=== PATIENT | male | born 2005 | race Hispanic/Latino ===

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

== ENCOUNTER 2025-01-11 19:48 | Emergency (ER) | payer OTHER ==
[~2025-01-11] VITALS: Ht 180.3 cm; Wt 93.0 kg
[~2025-01-11 19:48] MED LIST: METH-662 PO; NAPR-1505 PO
[2025-01-11] MEDS: 0.9%NACL 1000ML 1,000 ML IV ONE (20:08)
[2025-01-11] MEDS: FAMOTIDINE 20MG TAB PO ONE (20:08)
--- NOTE | 2025-01-11 20:20 | ERN ---
ED Note History of Present Illness Stated Complaint: ALLERGIC REACTION TO BEES, EPI PEN USED Chief Complaint: Allergic Reaction Time Seen by MD: 19:50 Time Seen by Midlevel: 19:50 Dictation: The patient is a 19-year-old male with no significant past medical history who presents to the emergency department with complaints of allergic reaction after being stung by two bees around 11:00 a.m.. Patient reports that he was done in his left lower quadrant and his left lower leg. Reports he removed his stinger. Patient reports that he developed hives and facial swelling and took his sister Leonardo around 11:00 a.m.. Patient reports that swelling has significantly decreased, hives were gone. Allergies: Coded Allergies: No Known Drug Allergies (Unverified Allergy, Unknown, 08/18/24) bee venom protein (honey bee) (Unverified Allergy, Unknown, 01/11/25) Home Meds Active Scripts Naproxen (Naproxen) 375 Mg Tablet.dr, 375 MG PO BID for 7 Days, #14 TAB Prov:MARTHA CHOUDHURY MD 08/18/24 Methocarbamol (Robaxin) 750 Mg Tab, 1 TAB PO BID for 5 Days, #10 TAB 0 Refills Prov:MARTHA CHOUDHURY MD 08/18/24 Past Medical History Past Medical History: No Pertinent History Surgical History: None RN Note Reviewed/Agreed w/PFSH: Yes Review of System Dictation Constitutional: Negative for fever,chills, and weight loss Eyes: Negative for injury, pain,redness, and discharge ENT: Negative for injury,pain or positive for facial swelling Cardiovascular: Negative for chest pain, palpitations, and edema Respiratory: Negative for shortness of breath, cough, and wheezing, Abdomen/GI: Negative for abdominal pain, nausea, vomiting, diarrhea, and constipation Back: Negative for injury and pain : Negative for injury, bleeding and discharge MS/Extremity: Negative for injury and deformity Skin: Negative for rash, and discoloration positive for bee sting Neuro: Negative for headache, weakness, numbness, tingling, and seizure Psych: Negative for suicide ideation, homicidal ideation, and hallucinations Initial Vital Sign VS Vital Signs Date Time Temp Pulse Resp B/P (MAP) Pulse Ox O2 Delivery O2 Flow Rate FiO2 01/11/25 19:50 98.2 62 18 139/71 100 Room Air Physical Exam Dictation Vital Signs reviewed General Appearance: Alert, oriented x 3, no acute distress, well developed, nourished. Head and Face: non-traumatic. Eyes: PERRL, pink conjunctivas, anterior chamber with arcus senilis. Mild bilateral eyelid swelling Ears: Pinnas intact and no signs of trauma or erythema ear canals clear and no discharge TM no erythema Nose: No discharge, no bleeding. Oropharynx: Mouth normal, tongue pink. Tongue normal in size pharynx clear,no erythema, tonsils no exudates, no abscesses noted, mucous membrane moist Neck: Supple, non-tender, no thyromegaly, no masses, no JVD, no bruits Breast:Deferred Chest:No tenderness, no crepitus, no paradoxical movement, no retractions Lungs:Clear, well-ventilated, symmetric, no rales, no wheezing, no rhonchi, no stridor, good breath sounds bilaterally Heart: Regular rate, regular rhythm, no murmur, no gallops Vascular: no peripheral edema, Abdomen: Soft, positive bowel sounds, nondistended, no guarding, nontender, no rebound, no masses no hepatomegaly, no splenomegaly, no Richards's sign, no hernias. Rectal: Deferred Genital: Deferred Neurological: Normal speech, motor function intact, sensory function intact Musculoskeletal: Neck nontender, full range of motion, back nontender, full range of motion, Extremities: nontender, full range of motion Skin: Color pink, dry, no turgor, no rash, no lacerations, no abrasions, no contusions. Erythema to left lower quadrant Lymphatic: Deferred Results (Laboratory/Radiology) Labs Reviewed?: Yes ED Course ED Course Orders Procedure Category Date Status Time Methylprednisolone PHA 01/11/25 Complete Succ 125mg (Solu-Medr 20:00 Famotidine 20mg Tab PHA 01/11/25 Complete (Pepcid 20mg Tab) 20:00 0.9%Nacl 1000ml (Ns PHA 01/11/25 Complete 1000ml) 20:00 Diphenhydramine Hcl PHA 01/11/25 Complete (Benadryl Inj) 20:00 Current Medications Medications (Trade) Dose Ordered Sig/Florentino Route PRN Reason Start Time Stop Time Status Last Admin Dose Admin Diphenhydramine HCl (BENAdryl INJ) 50 mg ONCE ONCE IV 01/11/25 20:00 01/11/25 20:02 DC 01/11/25 20:08 Famotidine (Pepcid 20mg Tab) 20 mg ONCE ONCE PO 01/11/25 20:00 01/11/25 20:02 DC 01/11/25 20:08 Methylprednisolone Sodium Succinate (Solu-medROL 125MG) 125 mg ONCE ONCE IVP 01/11/25 20:00 01/11/25 20:02 DC 01/11/25 20:08 Sodium Chloride 1,000 ml @ 0 mls/hr ONCE ONCE IV 01/11/25 20:00 01/11/25 20:02 DC 01/11/25 20:08 Vital Signs Date Time Temp Pulse Resp B/P (MAP) Pulse Ox O2 Delivery O2 Flow Rate FiO2 01/11/25 19:50 98.2 62 18 139/71 100 Room Air Medical Decision Making MDM The patient is a 19-year-old male with no significant past medical history who presents to the emergency department with complaints of allergic reaction after being stung by two bees around 11:00 a.m.. Patient reports that he was done in his left lower quadrant and his left lower leg. Reports he removed his stinger. Patient reports that he developed hives and facial swelling and took his sister EpiPen around 11:00 a.m.. Patient reports that swelling has significantly decreased, hives were gone. Symptoms improved with medication. On physical exam patient is in no acute distress, nontoxic appearance, clear lung sounds, no swelling to tongue, airway intact. Patient will be discharged with Benadryl and a Medrol pack for the house. Differential diagnosis: Allergic reaction, anaphylactic reaction, cellulitis Need for hospitalization: Patient does not meet criteria for hospitalization. There are no social concerns with this patient. DX & DISP Disposition: Discharge Departure Impression: Primary Impression: Allergic reaction Condition: Stable Scripts Methylprednisolone (Medrol) 4 Mg Tab.ds.pk 4 MG PO AD for 6 Days, #1 PACK Day 1: Take 2 tablets before breakfast,1 tablet after lunch and supper, and 2 tablets at bedtime. Day 2: Take1 tablet before breakfast,1 tablet after lunch,1 tablet after supper, and 2 tablets at bedtime. Day 3: Take 1 tablet before breakfast, 1 tablet after lunch, 1 tablet after supper, and 1 tablet at bedtime. Day 4: Take 1 tablet before breakfast, 1 tablet after lunch, and 1 tablet at bedtime. Day 5: Take1 tablet before breakfast and 1 tablet at bedtime. Day 6: Take 1 tablet before breakfast. Prov: AMIRA GOMEZ THERESA 01/11/25 Diphenhydramine HCl (Benadryl) 50 Mg Cap 50 MG PO Q6H for itching/rash for 4 Days, #20 CAP 0 Refills Prov: AMIRA GOMEZ THERESA 01/11/25 Famotidine (Pepcid) 20 Mg Tablet 1 TAB PO BID for 10 Days, #60 TAB 0 Refills Prov: AMIRA GOMEZ THERESA 01/11/25 Additional Instructions: Please avoid any contact with a any bees. Take your medications as prescribed. If you develop severe shortness of breath, tongue swelling or facial swelling please return to ER. FOLLOW-UP WITH PRIMARY CARE PROVIDER IN 1 TO 2 DAYS. TAKE MEDICATIONS DIRECTED HERE IN THE EMERGENCY ROOM. OKAY TO CONTINUE HOME MEDICATIONS UNLESS OTHERWISE DISCUSSED DURING YOUR VISIT IN THE EMERGENCY ROOM TODAY. RETURN TO YOUR NEAREST EMERGENCY ROOM IF SYMPTOMS WORSEN OR IF THERE IS NO IMPROVEMENT. CALL 911 IF YOU NEED IMMEDIATE ASSISTANCE. TAKE TYLENOL [id number] N EEDED AND IF NO CONTRAINDICATIONS ARE PRESENT. INCREASE ORAL HYDRATION. A WOUND CULTURE OR URINE CULTURE WAS ORDERED HERE IN THE EMERGENCY ROOM DEPARTMENT PLEASE FOLLOW-UP WITH PRIMARY CARE PROVIDER AND ADVISE THEM TO GET REPEAT PORTS FROM OUR FACILITY. IF YOU HAD ANY NAHID WRAP/SPLINTS THAT WERE APPLIED HERE, PLEASE DO NOT REMOVE THEM UNTIL YOU SEE YOUR PRIMARY CARE OR SPECIALTY. Referrals: SELF,REFERRAL (PCP) Time of Disposition: 21:23 I have reviewed the case, and I agree with, Diagnosis and Plan AMIRA GOMEZ THERESA Jan 11, 2025 20:20
[2025-01-11] MEDS ORDERED: METH4TAB3 PO (21:24)
[2025-01-11] MEDS ORDERED: FAMO-136 PO (21:24)
[2025-01-11] MEDS ORDERED: DIPH50CA38 PO (21:24)
[2025-01-11 21:30] VITALS: BP 132/71; PULSE 81; RESP 18; TEMP 98.2; O2SAT 98
== END 2025-01-11 21:34 | disposition home or self-care (01) ==
LOC: EDH 19:48
DX: T63.441A Toxic effect of venom of bees, accidental (unintentional), initial encounter (principal); L50.9 Urticaria, unspecified; Z91.030 Bee allergy status; Y92.89 Other specified places as the place of occurrence of the external cause
CPT/HCPCS: 99284; 96374; 96375; J2919; J1200; J7030